=== PATIENT | male | born 1955 | race Caucasian/White ===

== ENCOUNTER 2021-08-12 04:40 | Day surgery (SDC) | payer OTHER ==
[2021-08-08 15:41] VITALS: BMI 25.3
[2021-08-12] MEDS ORDERED: BUPIVACAINE HCL/PF 0.75% 10 ML VIAL ONE (07:45)
[2021-08-12] MEDS ORDERED: LIDOCAINE HCL/PF 1% SDV 5ML VIAL ONE (07:45)
[2021-08-12] MEDS ORDERED: LIDOCAINE 1% P/F 10 MG/ML VIAL INF ONE (09:36)
[2021-08-12] MEDS ORDERED: IOHEXOL 180 MG/1 ML ML IJ ONE (09:40)
[2021-08-12] MEDS ORDERED: BUPIVACAINE HCL/PF 0.75% 10 ML VIAL NR ONE (09:42)
[2021-08-12 13:23] VITALS: TEMP 98
[2021-08-12 13:37] VITALS: BP 140/80; PULSE 60
== END 2021-08-12 10:30 | disposition home or self-care (01) ==
LOC: JASU-SURG 04:40
PROVIDERS: ATTEND Pain Medicine Pain Medicine
PROC: BR16YZZ Fluoroscopy of Lumbar Facet Joint(s) using Other Contrast (ICD-10-PCS; 2021-08-12)
PROC: 3E0T3BZ Introduction of Anesthetic Agent into Peripheral Nerves and Plexi, Percutaneous Approach (ICD-10-PCS; principal; 2021-08-12 09:30)
DX: M47.816 Spondylosis without myelopathy or radiculopathy, lumbar region (principal); I10 Essential (primary) hypertension; E11.9 Type 2 diabetes mellitus without complications; E78.5 Hyperlipidemia, unspecified
CPT/HCPCS: 76000-TC-FY

== ENCOUNTER 2022-07-24 09:46 | Inpatient (IN) | payer OTHER ==
[2022-07-24 10:03] VITALS: BMI 27.0
[2022-07-24] MEDS ORDERED: LACTATED RINGERS SOLUTION 1000 ML INFUS.BAG IV ONE (10:28)
[2022-07-24 11:37] LABS: EOS % 1.1 % (0-4.5); HEMATOCRIT 45.8 % (35.4-49); HEMOGLOBIN 15.5 GM/dL (11.7-16.9); LYMPH % 17.3 % (8-40); MCH 30.2 pg (25.7-33.7); MCHC 33.8 g/dl (32.0-35.9); MEAN CELL VOLUME 89.2 fl (80-96); MEAN PLT VOLUME 8.3 fl (7.5-11.1); MONO % 7.3 % (3.8-10.2); NEUT % 73.3 % (42.8-82.8); PLATELET COUNT 317 10^3/uL (134-434); RBC 5.14 M/mm3 (4.00-5.60); RDW 13.8 % (11.9-15.9); WHITE BLOOD COUNT 7.6 K/mm3 (4.0-10.0)
[2022-07-24 11:46] LABS: INR 1.07 (0.83-1.09); PROTHROMBIN TIME (PATIENT) 12.3 SEC (9.7-13.0)
[2022-07-24 11:49] LABS: ACTIVATED PTT 30.8 SECONDS (25.2-36.5)
[2022-07-24 11:59] LABS: ALBUMIN 4.2 g/dl (3.4-5.0); BLOOD UREA NITROGEN 14.6 mg/dL (7-18); CALCIUM 10.2 mg/dL (8.5-10.1)
[2022-07-24 12:03] LABS: CREATININE 1.1 mg/dL (0.55-1.3)
[2022-07-24 12:04] LABS: BILIRUBIN,TOTAL 1.3 mg/dL (0.2-1); TOT PROT 7.6 g/dl (6.4-8.2)
[2022-07-24] MEDS ORDERED: SENNOSIDES 8.6MG TABLET (FP) PO PRN (13:32)
[2022-07-24] MEDS ORDERED: ACETAMINOPHEN 325 MG TABLET (FP) PO PRN (13:32)
[2022-07-24] MEDS ORDERED: ZOLPIDEM TARTRATE 5 MG TABLET PO PRN (15:55)
[2022-07-24 17:37] VITALS: RESP 16
[2022-07-24] MEDS: INSULIN SLIDING SCALE (NOVOLOG) 1 VIAL SQ SCH ×2 (17:39→21:07)
[2022-07-24] MEDS ORDERED: LISINOPRIL 5 MG TABLET PO SCH (18:00)
[2022-07-24] MEDS ORDERED: FLU VACC QS2022-23(6MOS UP)/PF 60 MCG/0.5 ML SYRINGE IM ONE (19:30)
[2022-07-24 21:53] VITALS: BP 154/99; PULSE 64; TEMP 98.3
[2022-07-24] MEDS ORDERED: ATORVASTATIN CA 10 MG TABLET (FP) PO SCH (22:00)
[2022-07-24] MEDS ORDERED: GABAPENTIN 300 MG CAPSULE PO SCH (22:00)
[2022-07-25] MEDS ORDERED: amLODIPine BESYLATE 10 MG TABLET (FP) PO SCH (10:00)
[2022-07-25] MEDS ORDERED: ENOXAPARIN NA (PORCINE) 40 MG/0.4 ML DISP.SYRIN SQ SCH (10:00)
== END 2022-07-24 21:55 | disposition home or self-care (01) | DRG 310 ==
LOC: JER 09:46 → JERBED 12:25 → OBSVTOIN 13:32 → J4W 16:44
PROVIDERS: ADMIT Internal Medicine; ATTEND Internal Medicine
DX: R00.2 Palpitations (principal); I10 Essential (primary) hypertension; E78.5 Hyperlipidemia, unspecified; F41.9 Anxiety disorder, unspecified
CPT/HCPCS: 36415; 71046-TC-FY; 80053; 80061; 82962; 83036; 84439; 84443; 84484; 85025; 85610; 85730; 93005; 93010; 96372; 99285-25; C9803-CS; G0378; U0003; U0005

== ENCOUNTER 2023-06-17 04:59 | Day surgery (SDC) | payer OTHER ==
[2023-06-16 09:26] VITALS: BMI 26.6
[2023-06-17] MEDS ORDERED: oxyCODONE HCL 5 MG TABLET PO PRN ×2 (09:46)
[2023-06-17] MEDS ORDERED: ONDANSETRON 4 MG/2 ML VIAL IVPUSH PRN (09:46)
[2023-06-17] MEDS ORDERED: PROMETHAZINE HCL 25 MG/1 ML VIAL IVPB PRN (09:46)
[2023-06-17] MEDS ORDERED: LACTATED RINGERS SOLUTION 1,000 ML IV SCH (10:00)
[2023-06-17] MEDS ORDERED: ROPIVACAINE HCL 0.5% 30ML VIAL ONE (11:29)
[2023-06-17] MEDS ORDERED: DEXAMETHASONE SOD PHOSPHATE 4 MG/1 ML VIAL ONE (11:30)
[2023-06-17] MEDS ORDERED: MIDAZOLAM HCL 2 MG/2 ML SINGLE DOSE VIAL ONE (11:30)
[2023-06-17] MEDS ORDERED: ROCURONIUM BROMIDE 50 MG/5 ML SYRINGE ONE (11:30)
[2023-06-17] MEDS ORDERED: LIDOCAINE HCL/PF 2% SDV 5ML VIAL ONE (11:30)
[2023-06-17] MEDS ORDERED: PROPOFOL 20 ML ONE (11:30)
[2023-06-17] MEDS ORDERED: ONDANSETRON 4 MG/2 ML VIAL ONE (11:30)
[2023-06-17] MEDS ORDERED: SUGAMMADEX SODIUM 200 MG/2 ML VIAL ONE (11:30)
[2023-06-17] MEDS ORDERED: ceFAZolin SODIUM 1 GM VIAL ONE (12:06)
[2023-06-17] MEDS ORDERED: ceFAZolin SODIUM 1 GM VIAL IVPB ONE (12:07)
[2023-06-17 15:49] VITALS: RESP 18
[2023-06-17 16:08] VITALS: BP 128/82; PULSE 85; TEMP 97.8
== END 2023-06-17 15:30 | disposition home or self-care (01) ==
LOC: JASU-SURG 04:59
PROVIDERS: ATTEND Orthopaedic Surgery
PROC: 0RNK4ZZ Release Left Shoulder Joint, Percutaneous Endoscopic Approach (ICD-10-PCS; principal; 2023-06-17 11:30)
PROC: 0PBB4ZZ Excision of Left Clavicle, Percutaneous Endoscopic Approach (ICD-10-PCS; 2023-06-17 11:30)
DX: M75.122 Complete rotator cuff tear or rupture of left shoulder, not specified as traumatic (principal); M75.42 Impingement syndrome of left shoulder; M19.012 Primary osteoarthritis, left shoulder; M75.02 Adhesive capsulitis of left shoulder
CPT/HCPCS: 82962; 94760; C1713

== ENCOUNTER 2024-08-04 04:09 | Day surgery (SDC) | payer OTHER ==
[2024-08-03 13:00] VITALS: BMI 26.4
[2024-08-04] MEDS ORDERED: ACETAMINOPHEN 500 MG TABLET (FP) PO PRN (08:37)
[2024-08-04] MEDS ORDERED: MIDAZOLAM HCL 2 MG/2 ML SINGLE DOSE VIAL ONE ×2 (10:47→10:57)
[2024-08-04] MEDS: LIDOCAINE HCL 1% PRESERVATIVE FREE - 30ML VIAL IJ ONE (10:58)
[2024-08-04] MEDS: BUPIVACAINE HCL/PF 0.75% 10 ML VIAL NR ONE ×2 (11:03)
[2024-08-04 11:26] VITALS: RESP 18
[2024-08-04 12:32] VITALS: BP 148/81; PULSE 68; TEMP 97.6
== END 2024-08-04 11:55 | disposition home or self-care (01) ==
LOC: JASU-SURG 04:09
PROVIDERS: ATTEND Pain Medicine Pain Medicine
PROC: 3E0T3BZ Introduction of Anesthetic Agent into Peripheral Nerves and Plexi, Percutaneous Approach (ICD-10-PCS; principal; 2024-08-04 10:45)
DX: M47.816 Spondylosis without myelopathy or radiculopathy, lumbar region (principal)
CPT/HCPCS: 76000-TC-FY; 82962